=== PATIENT | female | born 1930 | race Caucasian/White ===

== ENCOUNTER → 2017-05-01 | Outpatient (CLI) | payer MEDICARE ==
[2017-05-01 12:29] LABS: ABSOLUTE EOSINOPHILS # (AUTO) 0.1 10^3/uL (0.0-0.6); ABSOLUTE MONOCYTES (AUTO) 0.4 10^3/uL (0.1-1.4); ABSOLUTE NEUT (AUTO) 3.2 10^3/uL (1.7-8.2); EOSINOPHILS % (AUTO) 2.3 % (0-6); HEMATOCRIT 37.6 % (36.0-47.0); HEMOGLOBIN 12.5 g/dL (12.0-15.5); HGB HCT DIFFERENCE -0.1; LYMPHOCYTES % (AUTO) 19.9 % (13-45); MEAN CORPUSCULAR HEMOGLOBIN 31.8 pg (27.0-33.4); MEAN CORPUSCULAR HGB CONC 33.2 g/dL (32.0-36.0); MEAN CORPUSCULAR VOLUME 96 fl (80-97); RED BLOOD COUNT 3.93 10^6/uL (3.72-5.28); RED CELL DISTRIBUTION WIDTH 15.1 % (11.5-14.0); SEGMENTED NEUTROPHILS % (AUTO) 67.8 % (42-78); WHITE BLOOD COUNT 4.8 10^3/uL (4.0-10.5)
[2017-05-01 13:28] LABS: ERYTHROCYTE SEDIMENTATION RATE 55 mm/hr (0-30)
== END ==
LOC: OD 11:40
PROVIDERS: ATTEND Orthopaedic Surgery
DX: M17.12 Unilateral primary osteoarthritis, left knee (principal); M25.561 Pain in right knee; Z96.652 Presence of left artificial knee joint
CPT/HCPCS: 36415; 85025; 85652; 86140

== ENCOUNTER → 2017-05-26 | Outpatient (CLI) | payer MEDICARE ==
--- NOTE | 2017-05-26 16:47 | RADIOLOGY REPORT (SQ) ---
EXAM DESCRIPTION: NM 3 PHASE BONE SCAN COMPLETED DATE/TIME: 05/26/2017 2:45 pm REASON FOR STUDY: PRESENCE OF LEFT ARTIFICIAL KNEE JOINT/BURSITIS, LEFT HIP Z96.652 PRESENCE OF LEF T ARTIFICIAL KNEE JOINT COMPARISON: Left knee films two views 01/29/2017 RADIONUCLIDE AND DOSE: 20.7 millicuries Tc99m MDP. The route of agent administration: Intravenous. ADDITIONAL DRUGS AND DOSES: None. TECHNIQUE: Following injection of the radiopharmaceutical, serial blood flow images acquired. Equil ibrium blood pool images then acquired. Routine delayed images at 3 hour acquired of the areas of cl inical concern with additional focused images as needed. AREA OF INTEREST: Bilateral knees for three-phase exam. Static images include the pelvis and knees. LIMITATIONS: None. FINDINGS: VASCULAR FLOW IMAGES: No asymmetry or focal areas of hyperemia. BLOOD POOL IMAGES: There is mild increased activity in the distal left femur, patella, and proximal l eft tibia on the blood pool images. 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 On the left side, there is increased uptake adjacent to the prosthesis at the distal femur and proximal tibia. There is also asymmetrically increased ac tivity of the left patella. There is minimal increased uptake adjacent to the right tibial component of the right knee replacemen t. Delayed images of the bony pelvis were also obtained. No increased uptake worrisome for occult fract ure. IMPRESSION: Increased blood pool activity and 3 hour delay activity adjacent to a left total knee re placement, findings could indicate loosening. Section is considered possible but less likely COMMENT: Quality measure 147: Current bone scan is compared with any available plain radiographs, p rior bone scans, and CT/MRI. TECHNICAL DOCUMENTATION: JOB ID: [id number] [employer]- All Rights Reserved
== END ==
LOC: RAD 09:54
PROVIDERS: ATTEND Orthopaedic Surgery
DX: M70.62 Trochanteric bursitis, left hip (principal); Z96.652 Presence of left artificial knee joint
CPT/HCPCS: 78315; A9561; Q9969

== ENCOUNTER → 2017-10-22 | Outpatient (CLI) | payer MEDICARE | LOC: LAB 15:25 | PROVIDERS: ATTEND Internal Medicine | DX: R19.7 Diarrhea, unspecified (principal) | CPT/HCPCS: 87493 ==